=== PATIENT | male | born 1975 | race Caucasian/White ===

== ENCOUNTER 2025-05-11 11:46 | Emergency (ER) | payer OTHER, SELFPAY ==
[2025-05-11 11:47] VITALS: BP 133/93; PULSE 85; RESP 16; TEMP 35.7; O2SAT 98; BMI 31.7
--- NOTE | 2025-05-11 12:18 | CT_ITS ---
PROCEDURE: SPINE LUMBAR WITHOUT CONTRAST 05/11/2025 REASON FOR EXAM: FALL, PAIN TECHNIQUE: Procedure Code: CTSPL Modality: CT Procedure: SPINE LUMBAR WITHOUT CONTRAST Coronal and Sagittal reconstruction series were provided. One or more dose reduction techniques were used (e.g., Automated exposure control, adjustment of the mA and/or kV according to patient size, use of iterative reconstruction technique COMPARISON: None. RADIATION DOSE SUMMARY: CTDlvol: 16.28 mGy DLP: 729.26 mGycm FINDINGS: Vertebrae: No acute bony abnormalities. Congenital narrowing of the pedicles. Alignment: Normal alignment. L1-2: Mild bilateral foramina stenosis. Mild canal stenosis. L2-3: Small disc bulge. Mild inferior bilateral foramina stenosis. Mild canal stenosis. L3-4: Disc bulge. Facet joint arthropathy with ligamentum flavum hypertrophy. Severe canal stenosis. Moderate bilateral foramina stenosis. L4-5: Disc bulge. Facet joint arthropathy. Mild inferior bilateral foramina stenosis. Moderate canal stenosis. L5-S1: Disc bulge. Facet joints arthropathy. No significant foramina stenosis. Mild canal stenosis. Sacrum: No acute bony abnormalities. CT/Spine Lumbar without Contrast IMPRESSION: No acute injuries to the lumbar spine. Multilevel degenerate changes predominantly for severe canal stenosis and moder ate bilateral foramina stenosis at L3-L4. Reading Location: [facility], [facility]
[2025-05-11] MEDS: Ketorolac 30 MG/ML Syringe IM (12:24)
--- NOTE | 2025-05-11 12:25 | EDS_ITS ---
HPI History of Present Illness Chief Complaint: Back Narrative Narrative: Chief complaint and HPI: 49-year-old male with no significant past medical history presents for evaluation of lumbar back pain after a mechanical fall at work. Patient states he accidentally slipped on ice going down steps in which caused him to fall last week. He states he landed on his back. Patient states he has continued to have low back pain. He was not seen by provider. Denies numbness, weakness, change in bowel or bladder. Review of systems: See HPI Medications: As listed on the chart Allergies: As listed on the chart PFSH: Per chart Vital signs: As listed on the chart. Reviewed. Physical exam: Gen: A&O x3, NAD Head: Normocephalic, atraumatic Eyes: No sclera icterus, conjunctiva clear ENT: Moist mucous membranes Neck: Trachea midline, full range of motion, nontender CV: RRR, no murmurs Resp: Lungs CTA BL, no w/r/c GI: Abd soft, non-distended, non-tender, no r/r/g Musc: Full ROM, no deformity, patient has ecchymosis to the lower lumbar spine- tender to palpation in this area otherwise no midline spinal tenderness, no kim step-offs, patient has tenderness to palpation of the bilateral paraspinal musculature of the lumbar spine Skin: Warm, dry, intact Neuro: Alert, oriented, grossly intact, sensation intact Psych: Cooperative, appropriate mood and affect [facility] Allergy/AdvReac Type Severity Reaction Status Date / Time No Known Allergies Allergy Verified 05/11/25 11:49 Social History Smoking Status: Never smoker EXAM Physical Exam Const Vital Signs: 05/11/25 11:47 Temperature 96.3 F L Temperature Source Temporal Pulse Rate 85 Respiratory Rate 16 Blood Pressure 133/93 H Blood Pressure Mean 106 Pulse Ox 98 Oxygen Delivery Method Room Air MDM MDM MDM Narrative Medical decision making narrative: 49-year-old male with no significant past medical history presents for evaluation of lumbar back pain after a mechanical fall at work. Patient states he accidentally slipped on ice going down steps in which caused him to fall last week. He states he landed on his back. Denies numbness, weakness, change in bowel or bladder. There is no neurologic findings to suggest an acute cauda equina syndrome or any acute radiculopathy. At this point I do not feel any emergent MRI is needed. Differential diagnosis includes but is not limited to contusion, myofascial spasm, fracture. IM Toradol and p.o. Valium ordered. Will obtain CT of the lumbar spine and x-ray of the coccyx/sacrum since patient endorsing tailbone pain. CT of the lumbar spine with no acute traumatic injury. Multilevel degenerative changes prominently for severe canal stenosis and moderate bilateral foraminal stenosis at L3-L4. X-ray of the coccyx/sacrum was personally viewed interpreted by me, ED physician. No fracture or dislocation. Radiology in agreement. Given this finding, patient will be referred to our spinal surgeon outpatient as well as Worker's Compensation. Patient was educated on RICE therapy. IcyHot and heating pad as needed. Tylenol Motrin as needed. Muscle relaxers for spasm. Return back to ED if symptoms change or worsen. He confirmed understand the plan. Patient will discharge home. Impression: 1. Lumbar contusion 2. Lumbar muscle spasm 3. Spinal stenosis 4. Injury at work Radiography Diagnostic Testing: Clinical Impression(s) from Imaging Studies Lumbar Spine CT 05/11/25 12:18 IMPRESSION: No acute injuries to the lumbar spine. Multilevel degenerate changes predominantly for severe canal stenosis and moderate bilateral foramina stenosis at L3-L4. Reading Location: [facility] Sacrum and Coccyx X-Ray 05/11/25 13:27 IMPRESSION: Unremarkable radiographs of the sacrum and coccyx. Reading Location: [id number] Discharge Plan Triage Chief Complaint: Back ED Provider: Enrico Valle Dx/Rx/DC Orders Primary Care Provider: Care Physician,No Primary Referrals: Care Physician,No Primary [Primary Care Provider, Medical] Print Language: Citizen Of [place]
--- NOTE | 2025-05-11 13:27 | RAD_ITS ---
PROCEDURE: SACRUM-COCCYX MIN 2 VIEWS 05/11/2025 REASON FOR EXAM: PAIN, FALL TECHNIQUE: Procedure Code: RADSAC Modality: DX Procedure: SACRUM-COCCYX MIN 2 VIEWS COMPARISON: None available. FINDINGS: The sacrum and coccyx are intact. The bilateral sacroiliac joints are unremarkable. The pubic symphysis is within normal limits. No soft tissue abnormality. RAD/Sacrum-Coccyx min 2 Views IMPRESSION: Unremarkable radiographs of the sacrum and coccyx. Reading Location: [id number]
--- NOTE | 2025-05-11 13:44 | CM.ED ---
Social Work Date of referral: 05/11/25 Reason for referral: No Primary Care Physician (PCP) on file. Referred by: Social Work Identification. Patient provided consent to social work visit. Patient confirmed lack of PCP. [employer] offered a written handout to the [facility] which patient accepted and expressed appreciation for. [employer] provided education about the importance of being established with a PCP which patient verbalized an understanding for. Ros Minor, [employer] ATTENDANT, WE[employer]TER
[2025-05-11 13:46] VITALS: BP 144/99; PULSE 67; RESP 16; TEMP 36.6; O2SAT 100
[2025-05-11 14:25] VITALS: BP 144/99; PULSE 67; RESP 16; TEMP 36.6; O2SAT 100
== END 2025-05-11 14:32 | disposition home or self-care (01) ==
PROVIDERS: Emergency Provider Surgery; Visit Provider Surgery
DX: S30.0XXA Contusion of lower back and pelvis, initial encounter (principal); W00.1XXA Fall from stairs and steps due to ice and snow, initial encounter; Y99.0 Civilian activity done for income or pay; M48.061 Spinal stenosis, lumbar region without neurogenic claudication; M62.830 Muscle spasm of back
CPT/HCPCS: 72131; 72220; 96372; 99283